=== PATIENT | male | born 1960 | race Caucasian/White ===

== ENCOUNTER → 2019-05-04 | Outpatient (CLI) | payer OTHER ==
--- NOTE | 2019-05-04 10:00 | RAD ---
MR#: [id number] Date of Study: 05/04/2019 Ordering Physician: ODALYS RODRIGUEZ Referring Physician: RENETTA ZELAYA Tech: APPROVED REPORT Test Type: Exercise Stress Nurse/Tech: Avelina Sapp R.N. Test Indications: c/p Cardiac History: high cholesterol, family hx Medications: See Electronic Medical Record Medical History: See Electronic Medical Record Resting ECG: SR Resting Heart Rate: 72 bpm Resting Blood Pressure: 124/77mmHg Pretest Chest Pain: No chest pain Nurse/Tech Notes S1S2, lungs CTA Stress Symptoms fatigue POST EXERCISE Reason for Termination: Reached target heart rate Target HR: Yes Max HR: 149 bpm 109% of Maximum Predicted HR: 136 bpm Exercise duration: 8:59 min:sec, 3 Stage Exercise capacity: 10.0METs Max Blood Pressure: 170/80mmHg Blood Pressure response to exercise: Normal blood pressure response during stress. Heart Rate response to exercise: wnl Chest Pain: No. Arrhythmia: Yes. started having pvc's ST Change: No. INTERPRETATION Stress EKG Conclusion: Normal resting EKG No significant ST/T changes with exercise. Frequent PVC's noted Conclusion 1. Normal resting EKG 2. No significant ischemia noted with exercise. 3. Frequent PVC's noted with exercise and in recovery - 4. Normal exercise capacity with 10 Mets achieved. 5. Moderate risk study due to PVC's Recommendations Consider repeat testing with imaging due to frequent PVC's during EKG treadmill stress due to symptom s of chest pain as presenting symptom. Signed by : Asim Olea, Electronically Approved : 05/04/2019 10:00:12
== END | disposition home or self-care (01) ==
LOC: NM 07:54
PROVIDERS: ATTEND Internal Medicine Cardiovascular Disease
DX: I49.3 Ventricular premature depolarization (principal)
CPT/HCPCS: 93017